=== PATIENT | male | born 1940 | race Caucasian/White ===

== ENCOUNTER 2017-02-09 06:59 | Day surgery (SDC) | payer MEDICARE, OTHER ==
[2017-02-09] VITALS (11 sets, daily range): BP systolic 107–129; BP diastolic 64–79; PULSE 52–63; RESP 18–30; Ht 177.8 cm; Wt 82.4 kg
[~2017-02-09] VITALS: Ht 177.8 cm; Wt 82.4 kg
[2017-02-09] MEDS ORDERED: APIX5TAB PO (07:39)
[2017-02-09] MEDS ORDERED: ASPI-664 PO (07:39)
[2017-02-09] MEDS ORDERED: RANI150T9 PO (07:40)
[2017-02-09] MEDS ORDERED: LOSA50TA6 PO (07:44)
[2017-02-09] MEDS ORDERED: METO50TA16 PO (07:44)
[2017-02-09] MEDS ORDERED: PRAV40TA76 PO (07:45)
[2017-02-09] MEDS ORDERED: MAGN500C PO (07:54)
[2017-02-09] MEDS ORDERED: [UNRECOGNIZED DRUG - CODE] PO (07:56)
[2017-02-09] MEDS ORDERED: MAGN27TA3 PO (07:57)
[2017-02-09 08:32] LABS: ADD SCAN DIFF NO
[2017-02-09 08:43] LABS: BASOPHILS % 0.7 % (0.0-2.0); EOSINOPHILS # 0.3 10^3/ul (0.0-0.5); EOSINOPHILS % 4.9 % (0.0-7.0); HEMATOCRIT 40.8 % (42.0-52.0); HEMOGLOBIN 13.3 g/dl (14.0-18.0); LYMPHOCYTES % 16.8 % (15.0-51.0); MEAN CORPUSCULAR HEMOGLOBIN 32.4 pg (29.0-33.0); MEAN CORPUSCULAR HGB CONC 32.6 g/dl (32.0-37.0); MEAN CORPUSCULAR VOLUME 99.3 fl (82.0-101.0); MEAN PLATELET VOLUME 11.4 fl (7.4-10.4); MONOCYTE # 0.8 10^3/ul (0.3-0.9); MONOCYTES % 13.6 % (0.0-11.0); NEUTROPHIL # 3.8 10^3/ul (1.6-7.5); NEUTROPHILS % 63.8 % (39.0-77.0); PLATELET COUNT 190 10^3/UL (140-415); RED BLOOD COUNT 4.11 10^6/ul (4.70-6.10); RED CELL DISTRIBUTION WIDTH 12.3 % (11.5-14.5); WHITE BLOOD COUNT 5.9 10^3/ul (4.8-10.8)
[2017-02-09 09:28] LABS: POTASSIUM 4.6 mmol/L (3.5-5.1)
[2017-02-09 09:30] LABS: INR 1.02; PROTIME 13.4 Sec (12.2-14.2)
[2017-02-09 09:31] LABS: CALCIUM 9.5 mg/dl (8.4-10.2); CREATININE 1.61 mg/dl (0.61-1.24); PARTIAL THROMBOPLASTIN TIME 30.1 Sec (25.0-35.0)
[2017-02-09] MEDS ORDERED: MIDAZOLAM 1 MG/ML 2 ML INJ ONE (09:31)
[2017-02-09] MEDS ORDERED: VERAPAMIL 5 MG INJ ONE (09:31)
[2017-02-09] MEDS ORDERED: HEPARIN 1000 UNITS/ML 10 ML INJ ONE (09:31)
[2017-02-09] MEDS ORDERED: FENTAnyl 50 MCG/ML VIAL ONE (09:31)
[2017-02-09] MEDS ORDERED: IODIXANOL LOCM 100 ML BTL ONE (09:32)
[2017-02-09] MEDS ORDERED: NITROGLYCERIN (IC) 100 MCG/ML INJ ONE (09:32)
[2017-02-09] MEDS ORDERED: SOD CHLORIDE 0.9% 1,000 ML IV SCH (11:15)
--- NOTE | 2017-02-09 11:18 | PDOCDIS ---
Discharge Instructions CONDITION Patient Condition: Good HOME CARE INSTRUCTIONS: Diet Instructions: Low Fat /Cholesterol ACTIVITY: Activity Restrictions: Do not Drive (x 1 day) Activity Restrictions Comment: No heavy lifting x 3 days OTHER ORDERS: Other Orders: restart eliquis and losartan 02/10/17 Rubio Clements DO Feb 09, 2017 11:18
[2017-02-09] MEDS ORDERED: ACETAMINOPHEN 325 MG TAB PO PRN (11:30)
[2017-02-09] MEDS ORDERED: AL HYDROX/MG HYDROX/SIMETH 30 ML CUP PO PRN (11:30)
[2017-02-09] MEDS ORDERED: ONDANSETRON 4 MG INJ IV PRN (11:30)
--- NOTE | 2017-02-09 12:42 | CARRPT ---
DATE OF PROCEDURE: 02/09/2017 PROCEDURES: 1. Left heart catheterization. 2. Right and left coronary angiogram. 3. Interpretation and supervision of right and left coronary angiogram. 4. Left ventricular pressure measurements. 5. Left radial artery approach. PATIENT HISTORY: This is a 76-year-old male with history of cardiomyopathy for left heart catheterization. FINDINGS: HEMODYNAMICS: 1. LV pressure is 128/-4 with an EDP of 13. 2. Aortic pressure is 125/62. CORONARY ANATOMY: 1. Left main is a medium caliber vessel with no significant disease. 2. Circumflex is a medium caliber vessel and is dominant. There is a mid 20% to 30% stenosis including the ostium of the first medium caliber obtuse marginal with 10% stenosis, distal vessel which is the PDA with 10% diffuse stenosis. 3. LAD is a medium caliber vessel with a proximal 30% stenosis, mid, after the first diagonal, 20% stenosis, distal 10% stenosis. 4. RCA is a non-dominant vessel, small to medium caliber, with distal 10% stenosis. DESCRIPTION OF PROCEDURE: The patient was brought to the laborer operator after informed consent, the patient was prepped and draped as per protocol. Left renal access was obtained using ultrasound guidance. A 5/6-Liberian sheath was placed in the left radial artery. A 6-Liberian JL3.5 diagnostic catheter was used to engage the left main and angiogram was performed. Next using a 6- [place] JR4 catheter I entered the left ventricle. Pressure measurements were obtained as well as pullback. Next we engaged the RCA and angiogram was performed. There is no evidence of any significant obstructive epicardial coronary artery disease. All catheters and wires were removed. There were no immediate complications. DIAGNOSIS: Mild nonobstructive coronary artery disease. COMPLICATIONS: None. BLOOD LOSS: Blood loss was minimal. CONTRAST USED: 45 mL. RECOMMENDATIONS: Medical management. Dictated By: CARIN HINES/NARESH Conf#: [id number] DID#: [id number] MTDD
--- NOTE | 2017-02-09 22:12 | RADRPT ---
Vent Rate: 58 bpm RR Interval: 0 msec MA Interval: 184 msec QRS Duration: 100 msec QT Interval: 488 msec QTC Interval: 479 msec P-R-T Hunter: 70 - 34 - 38 degrees Sinus bradycardia with premature atrial complexes with aberrant conduction Otherwise normal ECG Electronically Signed By: Rubio Clements [id number]
== END 2017-02-09 15:00 | disposition home or self-care (01) ==
LOC: SDS 06:59
PROVIDERS: ATTEND Internal Medicine Cardiovascular Disease
DX: I25.10 Atherosclerotic heart disease of native coronary artery without angina pectoris (principal); I11.9 Hypertensive heart disease without heart failure; E78.2 Mixed hyperlipidemia; Z98.61 Coronary angioplasty status
CPT/HCPCS: 80048; 85025; 85610; 85730; 93005; 93458; C1769; C1887; J1644; J2250; J3010; Q9967